=== PATIENT | male | born 1945 | race Caucasian/White ===

== ENCOUNTER → 2017-04-04 | Outpatient (CLI) | payer OTHER ==
[~2017-04-04] VITALS: Ht 152.4 cm; Wt 77.1 kg
[~2017-04-04] MED LIST: ADULT ASPIRIN81 MG; AMLODIPINE BESYL5 MG; CEFUROXIME500 MG PO; FLONASE16 GM NS; GLUCOPHAGE XR500 MG; GRALISE300 MG; LIPITOR40 MG; LISINOPRIL5 MG; NABUMETONE750 MG; PROZAC20 MG; RESTORIL15 M1; ZYRTEC10 MG PO
== END | disposition home or self-care (01) ==
LOC: OFIC 805 08:40
DX: J34.2 Deviated nasal septum (principal); J32.8 Other chronic sinusitis; H90.3 Sensorineural hearing loss, bilateral; H61.23 Impacted cerumen, bilateral

== ENCOUNTER 2017-04-12 14:39 | Outpatient (CLI) | payer OTHER | END 2017-04-12 14:55 | disposition home or self-care (01) | LOC: LAB 14:39 | DX: C20 Malignant neoplasm of rectum (principal); C18.0 Malignant neoplasm of cecum ==

== ENCOUNTER 2017-05-18 11:38 | Outpatient (CLI) | payer OTHER | END 2017-05-18 11:48 | disposition home or self-care (01) | LOC: LAB 11:38 | DX: E55.9 Vitamin D deficiency, unspecified (principal); D64.89 Other specified anemias; E78.2 Mixed hyperlipidemia; I11.9 Hypertensive heart disease without heart failure; E56.8 Deficiency of other vitamins; N39.0 Urinary tract infection, site not specified; Z12.11 Encounter for screening for malignant neoplasm of colon; R19.5 Other fecal abnormalities; N19 Unspecified kidney failure; E03.8 Other specified hypothyroidism; R80.8 Other proteinuria ==

== ENCOUNTER 2017-05-30 14:31 | Outpatient (CLI) | payer OTHER | END 2017-05-30 14:44 | disposition home or self-care (01) | LOC: MRI 14:31 | DX: I67.2 Cerebral atherosclerosis (principal); S06.5X0A Traumatic subdural hemorrhage without loss of consciousness, initial encounter | CPT/HCPCS: 70551 ==

== ENCOUNTER 2017-10-06 10:26 | Outpatient (CLI) | payer OTHER | END 2017-10-06 10:27 | disposition home or self-care (01) | LOC: SONOGRAMA 10:26 | DX: Q61.00 Congenital renal cyst, unspecified (principal); I71.2 Thoracic aortic aneurysm, without rupture ==

== ENCOUNTER 2017-10-06 10:27 | Outpatient (CLI) | payer OTHER | END 2017-10-06 10:32 | disposition home or self-care (01) | LOC: LAB 10:27 | DX: D50.8 Other iron deficiency anemias (principal); E03.8 Other specified hypothyroidism; I11.9 Hypertensive heart disease without heart failure; E56.8 Deficiency of other vitamins; N39.0 Urinary tract infection, site not specified; R82.79 Other abnormal findings on microbiological examination of urine; Z12.11 Encounter for screening for malignant neoplasm of colon; R19.5 Other fecal abnormalities; E55.9 Vitamin D deficiency, unspecified; N19 Unspecified kidney failure; E11.9 Type 2 diabetes mellitus without complications; R80.8 Other proteinuria; D64.89 Other specified anemias; E53.8 Deficiency of other specified B group vitamins ==

== ENCOUNTER 2018-01-25 11:17 | Outpatient (CLI) | payer OTHER | END 2018-01-25 13:36 | disposition home or self-care (01) | LOC: NUCLEAR 11:17 | DX: C18.9 Malignant neoplasm of colon, unspecified (principal); C77.8 Secondary and unspecified malignant neoplasm of lymph nodes of multiple regions | CPT/HCPCS: 78815; A9552 ==

== ENCOUNTER 2018-01-30 12:45 | Outpatient (CLI) | payer OTHER | END 2018-01-30 12:52 | disposition home or self-care (01) | LOC: LAB 12:45 | DX: D50.8 Other iron deficiency anemias (principal); E03.8 Other specified hypothyroidism; E78.2 Mixed hyperlipidemia; I11.9 Hypertensive heart disease without heart failure; E56.8 Deficiency of other vitamins; N39.0 Urinary tract infection, site not specified; Z12.11 Encounter for screening for malignant neoplasm of colon; E55.9 Vitamin D deficiency, unspecified; N19 Unspecified kidney failure; E11.9 Type 2 diabetes mellitus without complications; R80.8 Other proteinuria; K92.1 Melena ==

== ENCOUNTER 2018-06-07 12:50 | Outpatient (CLI) | payer OTHER | END 2018-06-07 12:59 | disposition home or self-care (01) | LOC: LAB 12:50 | DX: E03.8 Other specified hypothyroidism (principal); E78.2 Mixed hyperlipidemia; I11.9 Hypertensive heart disease without heart failure; E56.8 Deficiency of other vitamins; N39.0 Urinary tract infection, site not specified; Z12.11 Encounter for screening for malignant neoplasm of colon; R19.5 Other fecal abnormalities; E55.9 Vitamin D deficiency, unspecified; N19 Unspecified kidney failure; E11.9 Type 2 diabetes mellitus without complications; C18.0 Malignant neoplasm of cecum; K92.1 Melena; D50.8 Other iron deficiency anemias ==

== ENCOUNTER 2018-10-30 12:28 | Outpatient (CLI) | payer OTHER | END 2018-10-30 12:39 | disposition home or self-care (01) | LOC: LAB 12:28 | DX: E03.8 Other specified hypothyroidism (principal); D50.8 Other iron deficiency anemias; E78.2 Mixed hyperlipidemia; I11.9 Hypertensive heart disease without heart failure; E56.8 Deficiency of other vitamins; N39.0 Urinary tract infection, site not specified; Z12.11 Encounter for screening for malignant neoplasm of colon; E55.9 Vitamin D deficiency, unspecified; N19 Unspecified kidney failure; E11.9 Type 2 diabetes mellitus without complications; R80.8 Other proteinuria; C18.0 Malignant neoplasm of cecum; K92.1 Melena ==

== ENCOUNTER 2019-03-28 11:40 | Outpatient (CLI) | payer OTHER | END 2019-03-28 11:48 | disposition home or self-care (01) | LOC: LAB 11:40 | DX: D50.8 Other iron deficiency anemias (principal); E03.8 Other specified hypothyroidism; E78.2 Mixed hyperlipidemia; I11.9 Hypertensive heart disease without heart failure; E56.8 Deficiency of other vitamins; N39.0 Urinary tract infection, site not specified; Z12.11 Encounter for screening for malignant neoplasm of colon; E55.9 Vitamin D deficiency, unspecified; N19 Unspecified kidney failure; E11.9 Type 2 diabetes mellitus without complications; R80.8 Other proteinuria; C18.0 Malignant neoplasm of cecum; K92.1 Melena ==

== ENCOUNTER 2019-11-20 14:12 | Outpatient (CLI) | payer OTHER | END 2019-11-20 14:25 | disposition home or self-care (01) | LOC: LAB 14:12 | PROVIDERS: ATTEND Internal Medicine Geriatric Medicine | DX: D50.8 Other iron deficiency anemias (principal); E03.8 Other specified hypothyroidism; E78.2 Mixed hyperlipidemia; I11.9 Hypertensive heart disease without heart failure; E56.8 Deficiency of other vitamins; N39.0 Urinary tract infection, site not specified; Z12.11 Encounter for screening for malignant neoplasm of colon; E55.9 Vitamin D deficiency, unspecified; N19 Unspecified kidney failure; E11.9 Type 2 diabetes mellitus without complications; R80.8 Other proteinuria; C18.0 Malignant neoplasm of cecum; K92.1 Melena ==

== ENCOUNTER 2019-11-21 11:40 | Outpatient (CLI) | payer OTHER | END 2019-11-21 15:00 | disposition home or self-care (01) | LOC: LAB 11:40 | PROVIDERS: ATTEND Internal Medicine Geriatric Medicine | DX: D50.8 Other iron deficiency anemias (principal); E03.8 Other specified hypothyroidism; E78.2 Mixed hyperlipidemia; I11.9 Hypertensive heart disease without heart failure; E56.8 Deficiency of other vitamins; N39.0 Urinary tract infection, site not specified; Z12.11 Encounter for screening for malignant neoplasm of colon; E55.9 Vitamin D deficiency, unspecified; N19 Unspecified kidney failure; E11.9 Type 2 diabetes mellitus without complications; R80.8 Other proteinuria; C18.0 Malignant neoplasm of cecum; K92.1 Melena ==

== ENCOUNTER 2020-01-15 17:42 | Emergency (ER) | payer OTHER ==
[~2020-01-15] VITALS: Ht 172.7 cm; Wt 72.6 kg
[2020-01-15] MEDS ORDERED: DOLOGEN CAPLET1 EACH PO (18:56)
[2020-01-23] MEDS ORDERED: FLUOXETINE HCL60 MG PO (16:29)
[2020-01-23] MEDS ORDERED: PLAVIX75 MG PO (16:30)
== END 2020-01-15 19:01 | disposition home or self-care (01) ==
LOC: ER 17:42
DX: S80.02XA Contusion of left knee, initial encounter (principal); W18.39XA Other fall on same level, initial encounter; Y93.89 Activity, other specified; Y92.488 Other paved roadways as the place of occurrence of the external cause; Y99.8 Other external cause status

== ENCOUNTER 2020-01-21 13:42 | Outpatient (CLI) | payer OTHER ==
[~2020-01-21 13:42] MED LIST changes: +DOLOGEN CAPLET1 EACH PO
[2020-01-23] MEDS ORDERED: FLUOXETINE HCL60 MG PO (16:29)
[2020-01-23] MEDS ORDERED: PLAVIX75 MG PO (16:30)
== END 2020-01-21 14:39 | disposition home or self-care (01) ==
LOC: MRI 13:42
PROVIDERS: ATTEND Orthopaedic Surgery
DX: M71.22 Synovial cyst of popliteal space [Baker], left knee (principal); S80.02XA Contusion of left knee, initial encounter; M25.061 Hemarthrosis, right knee
CPT/HCPCS: 73721

== ENCOUNTER 2020-01-27 09:50 | Day surgery (SDC) | payer OTHER ==
[~2020-01-27 09:50] MED LIST changes: +FLUOXETINE HCL60 MG PO; +PLAVIX75 MG PO
== END 2020-01-28 08:00 | disposition home or self-care (01) ==
LOC: CIR.AMB 09:50 → O/R 10:00 → CIR.AMB 11:15 → O/R 01-28 17:14 → SURH 01-28 17:14 → O/R 01-28 19:00 → SURH 01-28 19:00 → O/R 01-28 19:01
PROVIDERS: ATTEND Orthopaedic Surgery
DX: M23.232 Derangement of other medial meniscus due to old tear or injury, left knee (principal); S76.112A Strain of left quadriceps muscle, fascia and tendon, initial encounter; M65.862 Other synovitis and tenosynovitis, left lower leg

== ENCOUNTER 2020-01-30 11:37 | Outpatient (CLI) | payer OTHER | END 2020-01-30 11:52 | disposition home or self-care (01) | LOC: RAD 11:37 | PROVIDERS: ATTEND Orthopaedic Surgery | DX: M66.852 Spontaneous rupture of other tendons, left thigh (principal) ==

== ENCOUNTER 2020-10-15 08:32 | Outpatient (CLI) | payer OTHER | END 2020-10-15 08:40 | disposition home or self-care (01) | LOC: NUCLEAR 08:32 | PROVIDERS: ATTEND Internal Medicine Sports Medicine | DX: I50.1 Left ventricular failure, unspecified (principal) | CPT/HCPCS: 78452; 93017; A9500; J0153 ==

== ENCOUNTER 2020-10-20 09:27 | Outpatient (CLI) | payer OTHER | END 2020-10-20 09:29 | disposition home or self-care (01) | LOC: NUCLEAR 09:27 | PROVIDERS: ATTEND Internal Medicine Sports Medicine | DX: C78.5 Secondary malignant neoplasm of large intestine and rectum (principal) | CPT/HCPCS: 78816; A9552 ==

== ENCOUNTER 2021-05-12 15:20 | Emergency (ER) | payer OTHER ==
[~2021-05-12] VITALS: Ht 172.7 cm; Wt 77.1 kg
[2021-05-12] MEDS ORDERED: TAMS0.4C PO (19:12)
[2021-05-12] MEDS ORDERED: CIPRO500 MG PO (19:12)
== END 2021-05-12 19:17 | disposition home or self-care (01) ==
LOC: ER 15:20
DX: N20.9 Urinary calculus, unspecified (principal); I10 Essential (primary) hypertension; Z86.39 Personal history of other endocrine, nutritional and metabolic disease

== ENCOUNTER 2021-07-18 15:50 | Outpatient (CLI) | payer OTHER ==
[~2021-07-18 15:50] MED LIST changes: +CIPRO500 MG PO; +TAMS0.4C PO
== END 2021-07-18 15:58 | disposition home or self-care (01) ==
LOC: RAD 15:50
PROVIDERS: ATTEND Surgery
DX: N20.0 Calculus of kidney (principal)

== ENCOUNTER 2021-07-20 10:43 | Outpatient (CLI) | payer OTHER | END 2021-07-20 13:47 | disposition home or self-care (01) | LOC: LAB 10:43 | PROVIDERS: ATTEND Surgery | DX: E21.3 Hyperparathyroidism, unspecified (principal); N20.0 Calculus of kidney ==

== ENCOUNTER 2021-07-22 12:43 | Outpatient (CLI) | payer OTHER | END 2021-07-22 12:55 | disposition home or self-care (01) | LOC: LAB 12:43 | PROVIDERS: ATTEND Surgery | DX: E21.3 Hyperparathyroidism, unspecified (principal); N20.0 Calculus of kidney ==

== ENCOUNTER 2021-08-18 10:35 | Outpatient (CLI) | payer OTHER | END 2021-08-18 10:51 | disposition home or self-care (01) | LOC: RX STUDY 10:35 | PROVIDERS: ATTEND Internal Medicine Gastroenterology | DX: R13.10 Dysphagia, unspecified (principal) ==

== ENCOUNTER 2022-06-20 12:48 | Outpatient (CLI) | payer OTHER | END 2022-06-20 13:01 | disposition home or self-care (01) | LOC: TOM 12:48 | PROVIDERS: ATTEND Internal Medicine Gastroenterology | DX: R13.10 Dysphagia, unspecified (principal) ==

== ENCOUNTER 2022-07-19 10:45 | Outpatient (CLI) | payer OTHER | END 2022-07-19 10:48 | disposition home or self-care (01) | LOC: LAB 10:45 | PROVIDERS: ATTEND Surgery | DX: N20.0 Calculus of kidney (principal) ==

== ENCOUNTER → 2022-07-19 | Outpatient (CLI) | payer OTHER | END | disposition home or self-care (01) | LOC: SONOGRAMA 12:22 | PROVIDERS: ATTEND Surgery | DX: N20.0 Calculus of kidney (principal) ==

== ENCOUNTER 2022-08-21 11:55 | Outpatient (CLI) | payer OTHER | END 2022-08-21 12:07 | disposition home or self-care (01) | LOC: RAD 11:55 | PROVIDERS: ATTEND Surgery | DX: N20.0 Calculus of kidney (principal) ==

== ENCOUNTER 2022-11-16 13:51 | Outpatient (CLI) | payer OTHER | END 2022-11-16 13:56 | disposition home or self-care (01) | LOC: RAD 13:51 | PROVIDERS: ATTEND Internal Medicine Pulmonary Disease | DX: R05.3 Chronic cough (principal) ==

== ENCOUNTER 2023-02-15 15:00 | Outpatient (CLI) | payer OTHER | END 2023-02-15 15:07 | disposition home or self-care (01) | LOC: RAD 15:00 | DX: M25.562 Pain in left knee (principal); M17.12 Unilateral primary osteoarthritis, left knee ==

== ENCOUNTER → 2023-02-20 13:38 | Outpatient (CLI) | payer OTHER | END | disposition home or self-care (01) | LOC: LAB 13:38 | PROVIDERS: ATTEND Psychiatry & Neurology Psychiatry | DX: C61 Malignant neoplasm of prostate (principal) ==

== ENCOUNTER 2023-03-21 15:37 | Outpatient (CLI) | payer OTHER | END 2023-03-21 15:45 | disposition home or self-care (01) | LOC: MRI 15:37 | PROVIDERS: ATTEND Orthopaedic Surgery | DX: M25.562 Pain in left knee (principal); M17.12 Unilateral primary osteoarthritis, left knee; M23.92 Unspecified internal derangement of left knee | CPT/HCPCS: 73718 ==

== ENCOUNTER 2023-04-04 08:06 | Outpatient (CLI) | payer OTHER | END 2023-04-04 08:08 | disposition home or self-care (01) | LOC: NUCLEAR 08:06 | PROVIDERS: ATTEND Internal Medicine Sports Medicine | DX: C18.9 Malignant neoplasm of colon, unspecified (principal) | CPT/HCPCS: 78816; A9552 ==

== ENCOUNTER 2023-06-27 12:47 | Outpatient (CLI) | payer OTHER | END 2023-06-27 12:50 | disposition home or self-care (01) | LOC: NUCLEAR 12:47 | PROVIDERS: ATTEND Psychiatry & Neurology Clinical Neurophysiology | DX: R41.3 Other amnesia (principal) | CPT/HCPCS: 78803; A9557 ==

== ENCOUNTER 2024-09-01 13:15 | Outpatient (CLI) | payer OTHER | END 2024-09-01 13:18 | disposition home or self-care (01) | LOC: SONOGRAMA 13:15 | PROVIDERS: ATTEND Surgery | DX: N20.0 Calculus of kidney (principal) ==